=== PATIENT | female | born 1995 | race African-American/Black ===

== ENCOUNTER 2017-06-04 20:14 | Emergency (ER) | payer SELFPAY ==
[~2017-06-04] VITALS: Ht 160 cm; Wt 73.9 kg
[2017-06-04 20:40] VITALS: BP 113/75
--- NOTE | 2017-06-04 21:23 | PHYS DOC ---
Past Medical History Past Medical History: No Pertinent History Past Surgical History: No Surgical History Alcohol Use: Occasionally Drug Use: None Adult General Chief Complaint Chief Complaint: SKIN PROBLEM [facility] HPI Patient is a 22 year old female who presents complaining of discolored veins on the right lower extremity that she noted 2 days ago. Patient states she is to do a job where she was standing for long hours. Patient denies any pain to the right lower extremity. Denies any chest pain or shortness of breath, denies any long car travel or air travel, denies any shortness of breath. Denies any recent hospitalization. Denies any hormone use. She states her mother has history of varicose veins. Review of Systems Review of Systems Constitutional: Denies fever or chills [] Eyes: Denies change in visual acuity, redness, or eye pain [] HENT: Denies nasal congestion or sore throat [] Respiratory: Denies cough or shortness of breath [] Cardiovascular: No additional information not addressed in HPI [] GI: Denies abdominal pain, nausea, vomiting, bloody stools or diarrhea [] : Denies dysuria or hematuria [] Musculoskeletal: Denies back pain or joint pain [] Integument: Discolored veins on the right lower extremity Neurologic: Denies headache, focal weakness or sensory changes [] Physical Exam Physical Exam Constitutional: Well developed, well nourished, no acute distress, non-toxic appearance. [] HENT: Normocephalic, atraumatic, bilateral external ears normal, oropharynx moist, no oral exudates, nose normal. [] Eyes: PERRLA, EOMI, conjunctiva normal, no discharge. [] Neck: Normal range of motion, no tenderness, supple, no stridor. [] Cardiovascular:Heart rate regular rhythm, no murmur [] Lungs & Thorax: Bilateral breath sounds clear to auscultation [] Abdomen: Bowel sounds normal, soft, no tenderness, no masses, no pulsatile masses. [] Skin: Patient has what appears to be superficial varicose veins on the right lower extremity, no warmth to the areas, negative Homans sign to the right lower extremity. +2 right pedal pulse. Cap refill less than 2 seconds the right lower extremity. Back: No tenderness, no CVA tenderness. [] Extremities: No tenderness, no cyanosis, no clubbing, ROM intact, no edema. [] Neurologic: Alert and oriented X 3, normal motor function, normal sensory function, no focal deficits noted. [] Psychologic: Affect normal, judgement normal, mood normal. [] EKG EKG [] Radiology/Procedures Radiology/Procedures [] Course & Med Decision Making Course & Med Decision Making Pertinent Labs and Imaging studies reviewed. (See chart for details) Patient has varicose veins to the right lower extremity. She has no pain to the right lower extremity. Her PERC score is 0. She was discharged with instructions to follow-up of pain clinic. Compression stocking recommended, elevation of the affected extremity recommended, instructed to avoid being on her feet for long hours. Dragon Disclaimer Dragon Disclaimer This electronic medical record was generated, in whole or in part, using a voice recognition dictation system. Departure Departure Impression: Primary Impression: Spider varicose veins Disposition: 01 HOME, SELF-CARE Condition: STABLE Referrals: NO PCP (PCP) follow up with any vein clinic of your choise Patient Instructions: Varicose Veins Additional Instructions: You were seen with varicose vein/spider veins to the right lower extremity. Please contact any pain clinic in town and follow-up with them. Come back to the emergency room if you have pain to the affected area. Wear compression stockings as tolerated. SREEDHAR GUTIERREZ APRN Jun 04, 2017 21:23
== END 2017-06-04 21:20 | disposition home or self-care (01) ==
LOC: ER 20:14
DX: I83.891 Varicose veins of right lower extremity with other complications (principal)
CPT/HCPCS: 99281

== ENCOUNTER 2021-10-07 10:57 | Emergency (ER) | payer OTHER ==
[~2021-10-07] VITALS: Ht 160 cm; Wt 90.0 kg
[2021-10-07 13:23] VITALS: BP 123/84
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
[2021-10-07] MEDS ORDERED: NAPR-682 PO (13:51)
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
== END 2021-10-07 15:01 | disposition home or self-care (01) ==
LOC: ER 10:57
DX: S70.02XA Contusion of left hip, initial encounter (principal); S70.01XA Contusion of right hip, initial encounter; V49.9XXA Car occupant (driver) (passenger) injured in unspecified traffic accident, initial encounter; Y93.I9 Activity, other involving external motion; Y92.89 Other specified places as the place of occurrence of the external cause; Y99.8 Other external cause status
CPT/HCPCS: 72170; 99283

== ENCOUNTER 2021-12-22 10:56 | Emergency (ER) | payer SELFPAY ==
[~2021-12-22] VITALS: Ht 165.1 cm; Wt 87.6 kg
[~2021-12-22 10:56] MED LIST: NAPR-682 PO
--- NOTE | 2021-12-22 12:11 | PHYS DOC ---
Past Medical History Past Medical History: No Pertinent History Past Surgical History: No Surgical History Smoking Status: Former Smoker Alcohol Use: Occasionally Drug Use: None General Adult EDM: Chief Complaint: BREAST PROBLEM HPI: HPI: Patient is a 26 year [id number] female comes in to the ER with a presentation of right nipple for the last 4 months. Patient denies any pain to the area. Denies any swelling. Denies any headache denies any visual changes. Denies any hormone therapy. Patient comes to the ER today stating that she noticed that did not stop and wanted to figure out what was going on. 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 Patient has been having her normal menstrual periods no new medications. Denies any drug Review of Systems: Review of Systems: Constitutional: Denies fever or chills. Eyes: Denies change in visual acuity. HENT: Denies nasal congestion or sore throat. [ Respiratory: Denies cough or shortness of breath. Cardiovascular: Denies chest pain or edema. [ GI: Denies abdominal pain, nausea, vomiting, bloody stools or diarrhea. : Denies dysuria. Musculoskeletal: Denies back pain or joint pain. Integument: from the right breast nipple denies rash. Neurologic: Denies headache, focal weakness or sensory changes. Endocrine: Denies polyuria or polydipsia. Lymphatic: Denies swollen glands. Psychiatric: Denies depression or anxiety. Heart Score: C/O Chest Pain: No Risk Factors: Risk Factors: DM, Current or recent (<one month) smoker, HTN, HLP, family history of CAD, obesity. Risk Scores: Score 0 - 3: 2.5% MACE over next 6 weeks - Discharge Home Score 4 - 6: 20.3% MACE over next 6 weeks - Admit for Clinical Observation Score 7 - 10: 72.7% MACE over next 6 weeks - Early Invasive Strategies Allergies: Allergies: Allergies Coded Allergies Type Severity Reaction Last Updated Verified No Known Drug Allergies 10/07/21 No Physical Exam: PE: Constitutional: Well developed, well nourished, no acute distress, non-toxic appearance. HENT: Normocephalic, atraumatic, bilateral external ears normal, oropharynx moist, no oral exudates, nose normal. Eyes: PERRLA, EOMI, conjunctiva normal, no discharge. Neck: Normal range of motion, no tenderness, supple, no stridor. Cardiovascular:Heart rate regular rhythm, no murmur Lungs & Thorax: Bilateral breath sounds clear to auscultation Abdomen: Bowel sounds normal, soft, no tenderness, no masses, no pulsatile masses. Skin: Bilateral breast exam was done with the presence of the nurse at the bedside. No soreness swelling or tenderness appreciated. No was seen during the exam. No erythema surrounding the nipple site warm, dry, no erythema, no rash. Back: No tenderness, no CVA tenderness. Extremities: No tenderness, no cyanosis, no clubbing, ROM intact, no edema. Neurologic: Alert and oriented X 3, normal motor function, normal sensory funct ion, no focal deficits noted. Psychologic: Affect normal, judgement normal, mood normal. Current Patient Data: Labs: Laboratory Tests Test 12/22/21 11:21 12/22/21 11:27 POC Urine HCG, Qualitative Hcg negative (Negative) Maternal Serum HCG Beta Subunit < 1 mIU/mL (0-5) Vital Signs: Vital Signs Date Time Temp Pulse Resp B/P (MAP) Pulse Ox O2 Delivery O2 Flow Rate FiO2 12/22/21 10:58 98.3 93 18 144/98 (113) 100 Room Air 98.3 EKG: EKG: [] Radiology/Procedures: Radiology/Procedures: [] Course & Med Decision Making: Course & Med Decision Making Pertinent Labs and Imaging studies reviewed. (See chart for details) Patient will be given follow-up with [facility]ER will follow up with her primary care physician. Davy Disclaimer: Davy Disclaimer: This electronic medical record was generated, in whole or in part, using a voice recognition dictation system. Departure Departure Referrals: NO PCP (PCP) BRIELLE WOODARD DO Dec 22, 2021 12:11
[2021-12-22 12:45] VITALS: BP 117/80
== END 2021-12-22 12:56 | disposition home or self-care (01) ==
LOC: ER 10:56
DX: N64.52 Nipple discharge (principal); Z87.891 Personal history of nicotine dependence
CPT/HCPCS: 36415; 81025; 84702; 87491; 87591; 99283